=== PATIENT | male | born 1985 | race Caucasian/White ===

== ENCOUNTER → 2018-01-18 12:13 | Outpatient (CLI) | payer OTHER, SELFPAY | PROVIDERS: Visit Provider Physician Assistant Surgical | DX: J02.9 Acute pharyngitis, unspecified (principal) | CPT/HCPCS: 87081 ==

== ENCOUNTER → 2018-07-09 08:48 | Outpatient (CLI) | payer OTHER, SELFPAY ==
--- NOTE | 2018-07-09 08:55 | VDLE_ITS ---
[id number] VL^VDUL^Venous Duplex US- Unilateral [id number] TAG_START Cardiovascular Services Venous Doppler [facility] [address] Ordering Physician: Laura Rodriguez TAG_ENDED TAG_START Name: DIANNA CERVANTES Study Date: 07/09/2018 08:57 AM Patient Location: CVS : 1985 Gender: Male Age: 33 yrs Ethnicity: C TAG_ENDED Reason For Study: RLE Swelling RIGHT LEFT GSV is normal. CFV is compressible, spontaneous, phasic, CFV is compressible, spontaneous, phasic, competent, and demonstrates normal competent and demonstrates normal augmentation. augmentation. FV is compressible, spontaneous, phasic, competent and demonstrates normal augmentation. POP V is compressible, spontaneous, phasic, competent and demonstrates normal augmentation. T/P Trunk is compressible. PTV is compressible. RT PerV is compressible. Procedure Exam performed in department. A preliminary report was called and/or faxed to Michael. <> Interpretation Summary Deep veins of the right lower extremity are patent and compressible segmentally. There is no evidence of right lower extremity deep vein thrombosis. Valvular competence appears intact within the proximal deep venous system on the right . The right greater saphenous vein appears patent and compressible segmentally. TAG_START TAG_ENDED Ordering Physician: Laura Rodriguez Referring Physician: THEA Painting M.D. Performed By: Tracie Gallardo RVT and Student
== END ==
PROVIDERS: Family Provider Family Medicine; PCP Family Medicine; Visit Provider Physician Assistant
DX: M25.461 Effusion, right knee (principal); M79.604 Pain in right leg
CPT/HCPCS: 93971

== ENCOUNTER → 2018-11-10 09:12 | Outpatient (CLI) | payer OTHER, SELFPAY ==
[2018-11-10 09:27] LABS: Pathologist Comment May follow
[2018-11-10 10:18] LABS: RBC /Synovial Fluid 0.003 10^6/uL (0)
[2018-11-10 11:17] LABS: AUTO B FLUID DILUENT BKGD CT WBC <0.1 RBC <0.01 (W<.1,R<.01); Appearance /Synovial Fluid Cloudy (CLEAR); Color / Synovial Fluid Yellow (Pale Yellow); Source / Synovial Fluid RIGHT KNEE; Source- Body Fluid SYNOVIAL
[2018-11-10 12:34] LABS: Body Fluid QC Type(s) BF1Q,BF2Q; Lymph 8 %; Neutrophil 92 % (0-25)
[2018-11-11 08:59] LABS: Pathologist Review Reviewed
== END ==
PROVIDERS: Family Provider Family Medicine; PCP Family Medicine; Referring Provider Physician Assistant Surgical; Visit Provider Physician Assistant Surgical
DX: M22.41 Chondromalacia patellae, right knee (principal)
CPT/HCPCS: 87015; 87070; 87075; 87101; 87116; 87205; 87206; 89050; 89051; 89060

== ENCOUNTER 2020-08-13 21:30 | Emergency (ER) | payer OTHER, SELFPAY ==
[2020-08-13 21:31] VITALS: BP 145/102; PULSE 109; RESP 17; TEMP 36.9; O2SAT 99; BMI 32.2
--- NOTE | 2020-08-13 22:02 | EKG12_ITS ---
Test Reason : SOB, DIZZINESS Blood Pressure : / mmHG Vent. Rate : 085 BPM Atrial Rate : 085 BPM P-R Int : 172 ms QRS Dur : 082 ms QT Int : 368 ms P-R-T Axes : 041 034 020 degrees QTc Int : 437 ms Normal sinus rhythm Normal ECG Confirmed by LUI WEBB, BRINA ([id number]), editorial director VLADIMIR ESPINOZA ([id number]) on 08/15/2020 9:46:22 AM Referred By: CARMENCITA Confirmed By:BRINA POE MD
--- NOTE | 2020-08-13 22:10 | RAD_ITS ---
HISTORY: pt tested positive for covid 08/11, started to feel better but now has dizziness and sob. EXAMINATION/TECHNIQUE: XR Chest 1 View: COMPARISON: None FINDINGS: LINES/DEVICES: None. LUNGS: No consolidation, edema or effusion. No pneumothorax. MEDIASTINUM AND CARDIOVASCULAR STRUCTURES: Cardiac silhouette not enlarged. Central airways and mediastinal contour are unremarkable. BONES AND SOFT TISSUES: Unremarkable. RAD/Chest 1 View (Portable) IMPRESSION: No radiographic evidence of acute cardiopulmonary disease. at 2224 Reported and signed by: Marry Rollins DO Electronically Signed: Marry Rollins DO at 22:23 EST Tel , Service support ,
[2020-08-13 22:23] VITALS: O2SAT 96
[2020-08-13 22:27] LABS: Absolute Lymphocyte Count 1.48 X10^3/uL (0.83-4.51); Absolute Neutrophil Count 1.3 X10^3/uL (2.0-7.7); Basophil# 0.02 X10^3/uL; Basophil% 0.7 % (0-1); Eosinophil# 0.01 X10^3/uL; Eosinophils% 0.3 % (0-5); Hematocrit 46.5 % (40-54); Hemoglobin 16.3 g/dL (13.0-16.5); Lymphocyte # 1.48 X10^3/ul (4.0); Lymphocyte % 48.7 % (19-41); Mean Corp Hgb Conc 35.1 g/dL (32-36); Mean Corpuscular Hgb 30.1 pg (27.0-32.0); Mean Platelet Vol. 11.4 fl (6.2-12.0); Monocyte# 0.22 X10^3/uL; Monocyte% 7.2 % (0-10); NRBC Flagged by Analyzer 0 % (0-5); Neutrophil % 42.8 % (47-70); Platelet Count 175 K/mm3 (150-450); RBC Distribution Width CV 12.2 % (11.6-14.6); RBC Distribution Width SD 38.4 fl (35.1-43.9); Red Blood Count 5.41 M/mm3 (4.6-6.2)
[2020-08-13 22:33] LABS: Mucous, Urine 0 SEEN /hpf (<or=2+); Red Blood Cells-Urine 0 SEEN /hpf (0-5); Squamous Epithelial Cells - UA 0 SEEN /hpf (0-5)
[2020-08-13 22:55] LABS: Anion Gap 4 (5-15); BUN 12 mg/dL (7-18); BUN/Creat Ratio 10.3 RATIO (10-20); Calcium,Total 8.5 mg/dL (8.5-10.1); Chloride 107 mmol/L (98-107); Creatinine, Serum 1.17 mg/dL (0.70-1.30); EST Glomerular Filtration Rate 76 mL/min (>60); Est Glom Filt Rate - Afr Amer 92 mL/min (>60); Estimated Creatinine Clearance 95.64 ml/min; Glucose 95 mg/dL (74-106); Potassium 3.7 mmol/L (3.5-5.1); Sodium Level 141 mmol/L (136-145)
[2020-08-13 22:55] LABS: Color, Urine Yellow (Yellow); Glucose, Dipstick Normal (Normal); Ketone-Dipstick Negative (Negative); Leukocyte Esterase-Dipstick Negative /ul (Negative); Nitrite-Dipstick Negative (Negative); Occult Blood-Urine Negative /ul (Negative); Protein-Dipstick 15 mg/dl (Negative); Specific Gravity, Urine 1.015 (1.002-1.030); Urine Bilirubin Dipstick Negative (Negative); Urine Clarity Clear (Clear); Urine Urobilinogen 1 mg/dl (Normal)
[2020-08-13 23:18] LABS: D-Dimer Quantitative (DVT/PE) <= 0.27 FEU/ug/m (0.27-0.49)
[2020-08-13 23:23] LABS: Bacteria RARE /hpf (None Seen); White Blood Cells 0-5 SEEN /hpf (0-5)
--- NOTE | 2020-08-13 23:36 | ED.VISSUMM ---
- ER Visit Summary Date of Service: 08/13/20 Chief Complaint: Shortness of breath History of Present Illness: The patient is a [address] Wilmer Painting. He reports that he has had a cough since July 29. However, he was not tested for Covid until 2 days ago and this came back positive. Ports he has shortness of breath that began today. He had a fever to 100.5 degrees. Also complains of a sharp left-sided chest pain that is increased with deep breaths. States he has a headache is 3-10 severity and generalized weakness. Physical Examination: Vitals: Stable. Afebrile. General: Well-nourished and well-developed. Head: Normocephalic atraumatic. Neck: Supple, no lymphadenopathy. No JVD. Nontender. Cardiovascular: Regular rate and rhythm. No murmurs. Respiratory: No respiratory distress. Clear to auscultation bilaterally. Abdominal: Soft, nontender, nondistended, normal bowel sounds. No guarding, rebound, or peritoneal signs. Back: Nontender. Extremities: Nontender, no edema. Skin: Normal color, no rash. Neurologic: Alert and oriented ?3. Cranial nerves II through XII are intact. Normal strength and sensation. Psych: Normal affect. Test Results: EKG is sinus at 85 with no acute changes. D-dimer is negative. UA is negative. Chem-7 is normal. CBC shows a white count of 3.0 with 43 segmented neutrophils and 49 lymphocytes. Chest x-ray shows no acute disease. Emergency Department Course and Treatment: Amatory pulse ox is 96%. Patient is resting comfortably. Treatment Plan: Patient will be discharged with instructions to follow-up Dr. Wilmer Painting III in 10 to 14 days if not improving. He is instructed to continue to quarantine. Return to the emergency department for any worsening symptoms. Disposition: To home in improved and stable condition. Impression: 1. COVID-19 infection. 2. Dyspnea. This note was generated with [employer]'s dictation software. It may contain incorrect words, spelling, and punctuation that were not noted in review of the chart prior to signing ED Disposition - Plan for ED Patient: Instructions: ED URI, Viral, No Abx (Adult) Referrals: Wilmer Painting III, MD [Primary Care Provider] - 10-14 Days if not better
[2020-08-13 23:52] VITALS: BP 137/69; PULSE 79; RESP 15; O2SAT 98
== END 2020-08-14 00:40 | disposition home or self-care (01) ==
PROVIDERS: Emergency Provider Emergency Medicine; PCP Family Medicine
DX: U07.1 COVID-19 (principal); R06.00 Dyspnea, unspecified; I10 Essential (primary) hypertension
CPT/HCPCS: 71045; 80048; 81001; 85025; 85379; 93005; 96360; 99285; A4216

== ENCOUNTER 2021-10-03 09:00 | Outpatient (CLI) | payer OTHER, SELFPAY ==
[2021-10-03 12:45] LABS: Anion Gap 7 (5-15); BUN 10 mg/dL (7-18); BUN/Creat Ratio 10.8 RATIO (10-20); Chloride 109 mmol/L (98-107); Creatinine, Serum 0.92 mg/dL (0.70-1.30); EST Glomerular Filtration Rate 99 mL/min (>60); Est Glom Filt Rate - Afr Amer 120 mL/min (>60); Glucose 94 mg/dL (74-106); Potassium 3.8 mmol/L (3.5-5.1); Sodium Level 140 mmol/L (136-145)
== END 2021-10-03 23:59 | disposition short-term general hospital (02) ==
LOC: BIMLAB 09:02
PROVIDERS: PCP Nurse Practitioner Family; Referring Provider Nurse Practitioner Family; Visit Provider Nurse Practitioner Family
DX: I10 Essential (primary) hypertension (principal)
CPT/HCPCS: 36415; 80048

== ENCOUNTER → 2022-01-22 | Outpatient (CLI) | payer OTHER, SELFPAY ==
[2022-01-22 12:30] LABS: Absolute Lymphocyte Count 1.65 X10^3/uL (0.83-4.51); Absolute Neutrophil Count 2.6 X10^3/uL (2.0-7.7); Basophil# 0.05 X10^3/uL; Eosinophils% 2.1 % (0-5); Hematocrit 46.7 % (40-54); Hemoglobin 15.6 g/dL (13.0-16.5); Lymphocyte # 1.65 X10^3/ul (0.83-4.51); Lymphocyte % 34.4 % (19-41); Mean Corp Hgb Conc 33.4 g/dL (32-36); Mean Corpuscular Hgb 29.3 pg (27.0-32.0); Mean Corpuscular Volume 87.6 fL (80-94); Mean Platelet Vol. 11.6 fl (6.2-12.0); Monocyte% 8.3 % (0-10); NRBC Flagged by Analyzer 0 % (0-5); Neutrophil # 2.59 X10^3/uL (2.7-7.7); Platelet Count 211 K/mm3 (150-450); RBC Distribution Width CV 12.6 % (11.6-14.6); RBC Distribution Width SD 40.3 fl (35.1-43.9); Red Blood Count 5.33 M/mm3 (4.6-6.2); White Blood Count 4.8 K/mm3 (4.4-11.0)
[2022-01-22 13:07] LABS: ALB/GLOB Ratio 1.2 RATIO (0.9-2.4); AST(SGOT) 25 U/L (15-37); Alanine Aminotransfer ALT/SGPT 54 U/L (16-61); Albumin, Serum 4.1 g/dL (3.2-5.0); Alkaline Phosphatase 73 U/L (45-117); Anion Gap 5 (5-15); BUN 12 mg/dL (7-18); BUN/Creat Ratio 12.4 RATIO (10-20); Calcium,Total 8.9 mg/dL (8.5-10.1); Chloride 107 mmol/L (98-107); Cholesterol 200 mg/dL (200); Creatinine, Serum 0.96 mg/dL (0.70-1.30); EST Glomerular Filtration Rate 94 mL/min (>60); Est Glom Filt Rate - Afr Amer 114 mL/min (>60); Globulin 3.5 g/dL (2.2-4.2); Glucose 95 mg/dL (74-106); High Density Lipoprotein 43 mg/dL; Potassium 3.9 mmol/L (3.5-5.1); Protein, Total 7.6 g/dL (6.4-8.2); Sodium Level 139 mmol/L (136-145); Thyroid Stim Hormone (TSH) 2.23 uIU/mL (0.358-3.74); Triglycerides 54 mg/dL; Very Low Density Lipoprotein 11 mg/dL (5-40)
== END | disposition home or self-care (01) ==
PROVIDERS: PCP Nurse Practitioner Family; Referring Provider Nurse Practitioner Family; Visit Provider Nurse Practitioner Family
DX: Z00.00 Encounter for general adult medical examination without abnormal findings (principal); R73.09 Other abnormal glucose
CPT/HCPCS: 36415; 80053; 80061; 83036; 84443; 85025

== ENCOUNTER → 2022-08-26 | Outpatient (CLI) | payer OTHER, SELFPAY | END | disposition home or self-care (01) | PROVIDERS: PCP Nurse Practitioner Family; Referring Provider Nurse Practitioner Family; Visit Provider Nurse Practitioner Family | DX: G47.10 Hypersomnia, unspecified (principal) | CPT/HCPCS: 95806 ==

== ENCOUNTER → 2024-04-14 | Outpatient (CLI) | payer BC, SELFPAY ==
[2024-04-14 17:19] LABS: Color, Urine Yellow (Yellow); Glucose, Dipstick Normal (Normal); Ketone-Dipstick Negative (Negative); Leukocyte Esterase-Dipstick 25 /ul (Negative); Nitrite-Dipstick Negative (Negative); Occult Blood-Urine Negative /ul (Negative); Protein-Dipstick 15 mg/dl (Negative); Specific Gravity, Urine 1.025 (1.002-1.030); Urine Bilirubin Dipstick Negative (Negative); Urine Clarity Clear (Clear); Urine Urobilinogen Normal (Normal)
[2024-04-14 17:22] LABS: Absolute Neutrophil Count 3.6 X10^3/uL (2.0-7.7); Basophil# 0.04 X10^3/uL; Basophil% 0.6 % (0-1); Eosinophils% 1.6 % (0-5); Hematocrit 44.3 % (40-54); Hemoglobin 14.9 g/dL (13.0-16.5); Lymphocyte % 33.3 % (19-41); Mean Corp Hgb Conc 33.6 g/dL (32-36); Mean Corpuscular Hgb 28.9 pg (27.0-32.0); Mean Corpuscular Volume 85.9 fL (80-94); Mean Platelet Vol. 11.6 fl (6.2-12.0); Monocyte# 0.43 X10^3/uL; Monocyte% 6.8 % (0-10); NRBC Flagged by Analyzer 0 % (0-5); Neutrophil # 3.61 X10^3/uL (2.7-7.7); Neutrophil % 57.4 % (47-70); Platelet Count 257 K/mm3 (150-450); RBC Distribution Width CV 12.5 % (11.6-14.6); RBC Distribution Width SD 38.9 fl (35.1-43.9); Red Blood Count 5.16 M/mm3 (4.6-6.2); White Blood Count 6.3 K/mm3 (4.4-11.0)
[2024-04-14 17:36] LABS: Vitamin B12 390 pg/mL (211-911)
[2024-04-14 17:52] LABS: ALB/GLOB Ratio 1.2 RATIO (0.9-2.4); AST(SGOT) 27 U/L (15-37); Alanine Aminotransfer ALT/SGPT 52 U/L (16-61); Albumin, Serum 4.2 g/dL (3.2-5.0); Alkaline Phosphatase 69 U/L (45-117); Anion Gap 6 (5-15); BUN 16 mg/dL (7-18); BUN/Creat Ratio 15.8 RATIO (10-20); Calcium,Total 9.1 mg/dL (8.5-10.1); Chloride 106 mmol/L (98-107); Cholesterol 203 mg/dL (200); Creatinine, Serum 1.01 mg/dL (0.70-1.30); EST Glomerular Filtration Rate 88 mL/min (>60); Est Glom Filt Rate - Afr Amer 107 mL/min (>60); Globulin 3.6 g/dL (2.2-4.2); Glucose 85 mg/dL (74-106); High Density Lipoprotein 46 mg/dL; Potassium 4.1 mmol/L (3.5-5.1); Protein, Total 7.8 g/dL (6.4-8.2); Sodium Level 138 mmol/L (136-145); T4 Free Direct 1.09 ng/dL (0.76-1.46); Thyroid Stim Hormone (TSH) 1.62 uIU/mL (0.358-3.74); Triglycerides 62 mg/dL; Very Low Density Lipoprotein 12 mg/dL (5-40)
[2024-04-19 11:09] LABS: Testosterone, % Free 3.49 % (1.50-4.20); Testosterone, Free 10.68 ng/dL (5.00-21.00); Testosterone, Total 306 ng/dL (264-916)
== END | disposition home or self-care (01) ==
LOC: VSLAB 13:48
PROVIDERS: PCP Nurse Practitioner Family; Visit Provider Nurse Practitioner Family
DX: Z00.00 Encounter for general adult medical examination without abnormal findings (principal); E55.9 Vitamin D deficiency, unspecified; N52.9 Male erectile dysfunction, unspecified
CPT/HCPCS: 36415; 80053; 80061; 81002; 82306; 82607; 84402; 84403; 84439; 84443; 85025

== ENCOUNTER 2024-05-20 06:58 | Day surgery (SDC) | payer BC, SELFPAY ==
[2024-05-20] VITALS (7 sets, daily range): BP systolic 91–130; BP diastolic 68–80; PULSE 67–91; RESP 16–82; TEMP 36.2–36.6; O2SAT 94–98; BMI 32.3
--- NOTE | 2024-05-20 07:21 | PCM.PRE.AN2 ---
ASA Classification* ASA Classification ASA Classification: 2 Assessment & Plan Anesthesia* Anesthesia Assessment Anesthesia Assessment: Discussed sedation and/or anesthesia options, risks, benefits, and alternatives with patient/parents/legal guardian/POA. Questions invited. The patient/parents/legal guardian/POA seems to understand and agrees to proceed with anesthesia plan. Reviewed the physical assessment, medical history, allergy history and patient home medications list prior to surgery/procedure/anesthetic and documented any changes. Performed airway and anesthesia risk assessments. Anesthesia Type Anesthesia Type: MAC (see written pre anesthesia record for full assessment) Anesthesia Focused Assessment* Airway Assessment Mouth opens: >3 cm Mallampati Score: II Focused Labs Anesthesia Preop lab: CBC WBC 6.3 K/mm3 (4.4-11.0) 04/14/24 13:48 RBC 5.16 M/mm3 (4.6-6.2) 04/14/24 13:48 Hgb 14.9 g/dL (13.0-16.5) 04/14/24 13:48 Hct 44.3 % (40-54) 04/14/24 13:48 Plt Count 257 K/mm3 (150-450) 04/14/24 13:48 CHEMISTRY Potassium 4.1 mmol/L (3.5-5.1) 04/14/24 13:48 Sodium 138 mmol/L (136-145) 04/14/24 13:48 BUN 16 mg/dL (7-18) 04/14/24 13:48 Creatinine 1.01 mg/dL (0.70-1.30) 04/14/24 13:48 Glucose 85 mg/dL (74-106) 04/14/24 13:48 TSH 1.62 uIU/mL (0.358-3.74) 04/14/24 13:48 COAG Pre-Assessment Diagnosis/Proposed Procedure Planned Operative Procedure(s): COLONOSCOPY Anesthesia History 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 When Was Last Pacemaker Check QUESTION #4 FULL TEXT: You/Your Family Experience fever (hyperthermia) with Anesthesia Last Oral Intake Last Oral intake: Last Oral Intake NPO since Meds taken in AM with sips of water? Meds patient instructed to take am of surgery PONV PONV - fabrication supervisor: PONV - fabrication supervisor Female No 05/17/24 15:46 HX of Motion Sickness No 05/17/24 15:46 HX of N/V After Surgery No 05/17/24 15:46 Non-Smoker Yes 05/17/24 15:46 Duration of Surgery greater No 05/17/24 15:46 than 60 minutes Number of Risk Factors 1 05/17/24 15:46 PONV Score Low Risk 05/17/24 15:46 Height & Weight Height & Weight: Anesthesia: Height & Weight Height 5 ft 11 in 04/28/24 09:11 Respiratory Assessment Respiratory Assessment - fabrication supervisor: Respiratory Tract Infection Hx - fabrication supervisor Hx Respiratory Tract Infection No 05/17/24 15:46 STOP Sleep Apnea STOP Sleep Apnea - fabrication supervisor: STOP Sleep Apnea - fabrication supervisor Hx Hypertension Yes 05/17/24 15:46 Hx Sleep Apnea No 05/17/24 15:46 CPAP BIPAP Do you snore loudly (louder No 05/17/24 15:46 than talking or can be heard Do you often feel tired/ No 05/17/24 15:46 fatigued/ sleepy during daytime? Has anyone observed you stop No 05/17/24 15:46 breathing during sleep? STOP Results Negative 05/17/24 15:46 QUESTION #5 FULL TEXT : Do you snore loudly (louder than talking or can be heard through closed doors)? 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 Specify any problems Hx of Preganancy in last 3 N/A 05/17/24 15:46 Months Nurse Filling Out Transfusion [facility] 05/17/24 15:46 & Questions: Date: 05/17/24 05/17/24 15:46 Time: 15:53 05/17/24 15:46 Patient unable to answer at this time (ie. confused, unrespo /Reproduction History /Reproductive History - fabrication supervisor: /Reproductive Hx- fabrication supervisor Hx Now No 05/17/24 15:46 Gestational Age (in weeks): EDC: Hx Hx Para Hx Section SAB No 05/17/24 15:46 Active Medications Active Medications: Current Medications Generic Name Dose Route Start Last Admin Trade Name Freq PRN Reason Stop Dose Admin Lactated Ringer's 1,000 mls @ 15 mls/hr 05/20/24 07:15 IV .Q48H ALVINA PFSH Medical History Wears glasses Non-smoker Asthma Anal fissure Hypersomnia Encounter for preventative adult health care examination Puncture wound of left foot HTN (hypertension) GERD (gastroesophageal reflux disease) IBS (irritable bowel syndrome) Hyperlipemia Asthma Seasonal allergies SOB (shortness of breath) HTN (hypertension) Home Medications ?Medication ?Instructions ?Recorded ?Last Taken ?Type albuterol sulfate 90 mcg/actuation 2 puff inhalation Q6H PRN 02/05/23 Unknown Rx aerosol inhaler shortness of breath or wheezing #8.5 GMS lisinopril 20 1 tab PO DAILY #90 tabs 02/05/23 Unknown Rx mg-hydrochlorothiazide 12.5 mg tablet Allergy/AdvReac Type Severity Reaction Status Date / Time animal dander Allergy Unknown Verified 05/20/24 07:13 grass pollen Allergy Unknown Verified 05/20/24 07:13 house dust Allergy Unknown Verified 05/20/24 07:13 nickel Allergy Unknown Verified 05/20/24 07:13 Family History Grandfather Hypertension Surgical History History of tonsillectomy Social History Smoking Status: Never smoker alcohol intake: never substance use type: does not use what type of physical activity do you participate in: walking frequency: daily duration: 45-60 minutes/day Review of Systems (Anesthesia) ROS Narrative System reviewed and no additional complaints, except as documented.
--- NOTE | 2024-05-20 08:03 | HP.PCM_ITS ---
History and Physical Date of Admission: 05/20/24 Intake Vital Signs 02/06/2316:45 04/28/2409:11 Height 5 ft 11 in 5 ft 11 in Weight: 236 lb BMI 32.9 BP 145/83 H Blood Pressure Location Rt brachial Position Sitting Respiration 17 Pulse 75 Pulse Source Monitor Temp 96.8 F L Temp Source Temporal Pulse Oximetry (%) 95 Oxygen Delivery Method room air Intake Visit Reasons: RECTAL BLEEDING Chief Complaint: rectal bleeding Is patient in pain?: No Allergies animal dander Allergy (Verified 04/28/24 09:12) Unknowngrass pollen Allergy (Verified 04/28/24 09:12) Unknownhouse dust Allergy (Verified 04/28/24 09:12) Unknownnickel Allergy (Verified 04/28/24 09:12) Unknown Medications ?Medication ?Instructions ?Recorded ?Confirmed ?Type albuterol sulfate 90 mcg/actuation 2 puff inhalation Q6H PRN 02/05/23 04/28/24 Rx aerosol inhaler shortness of breath or wheezing #8.5 GMS lisinopril 20 1 tab PO DAILY #90 tabs 02/05/23 04/28/24 Rx mg-hydrochlorothiazide 12.5 mg tablet PFSH Medical History (Updated 04/28/24 @ 09:10 by Trish Elias) Anal fissure Hypersomnia Encounter for preventative adult health care examination Puncture wound of left foot HTN (hypertension) GERD (gastroesophageal reflux disease) IBS (irritable bowel syndrome) Hyperlipemia Asthma Seasonal allergies SOB (shortness of breath) HTN (hypertension) Family History (Updated 04/28/24 @ 09:11 by Trish Elias) Grandfather Hypertension Social History Smoking Status: Never smoker alcohol intake: never substance use type: does not use what type of physical activity do you participate in: walking frequency: daily duration: 45-60 minutes/day HPI HPI HPI: Patient is a 38-year-old male who is here with blood in his stool. He says has been going on for several months. He says he does have hard bowel movements. He is not having pain with defecation. He says the blood is bright red. He has never had a colonoscopy. ROS General General: No weight change, appetite, fatigue, colon cancer, breast cancer or weakness HEENT HEENT: No difficulty swallowing, eye injury, eye surgery, swollen glands or hoarseness Endo Endocrine: No thyroid disease, diabetes mellitus, thyroid cancer, Hair loss, heat intolerance or cold intolerance Skin Skin: No rash or changing moles Musc Musculoskeletal: No back problems, arthritis, rheumatoid arthritis, gout or joint pain Cardio Cardiovascular: Yes high blood pressure; No murmur, pacemaker, heart disease, atrial fibrillation, heart attack, heart stent, palpitations, shortness of breat with exertion or chest pain Psych Psychiatric: No depression, anxiety or hearing voices Resp Respiratory: No shortness of breath, No sleep apnea, No cough, No COPD, No asthma, No emphysema and No wheezing Gastro Gastrointestinal: No abdominal pain, No nausea or vomiting, No diarrhea, No constipation, Yes blood in stool, No acid reflux, No hemorrhoids, No ulcers, No gallbladder problem and No black,tarry stools Silvano Hematologic: No blood thinners, No blood disorders, No bleeding, No anemia and No blood clots Neuro Neurologic: No system reviewed and no additional complaints, except as documented, No as per HPI, No abnormal gait, No abnormal hearing, No abnormal movements, No abnormal speech, No behavioral changes, No burning sensations, No confusion, No convulsions, No disequilibrium, No dizziness, No localized weakness, No frequent falls, No headache(s), No lack of coordination, No loss of vision, No memory loss, No numbness, No other visual disturbances, No radicular pain, No restless legs, No sensory deficit, No syncope, No tingling, No tremor(s), No weakness and No other Exam Const General: cooperative Orientation: alert and oriented x3 HENMT Head: normal to inspection Neck Neck: normal visual inspection and full ROM Chest Chest palpation & inspection: normal inspection of the chest Resp Effort & Inspection: normal respiratory effort Auscultation: clear to auscultation bilaterally Cardio Rate: regular rate Rhythm: regular rhythm GI Inspection: non-distended Palpation: soft and nontender Skin General: no rashes or lesions noted Neuro General: patient alert and patient oriented x3 Extrem General: full ROM Psych Appearance: grossly normal Mental Status: mental status grossly normal Assessment and Plan Assessment and Plan (1) Blood in stool: Status: Acute Plan: Plan for colonoscopy to evaluate for bleeding. I explained endoscopy in detail to the patient. I explained the risks including but not limited to stroke or heart attack with anesthesia, perforation of the GI tract, bleeding, infection. I explained that any of these could necessitate further emergency surgery. The patient understands and all questions were answered sufficiently. The patient wishes to proceed with procedure. Isreal Cha MD Pager: [facility] [address] [place] [address], [address] [place] [address] Office: I have examined the patient and the H&P has been reviewed. There are no clinical changes since date of exam.
--- NOTE | 2024-05-20 08:32 | PCM.POST.ANE ---
Anesthesia: Postop Eval I Current Vital Signs Temperature: 97.8 F Pulse Rate: 75 Blood Pressure: 91/69 Respiratory Rate: 16 Pulse Ox: 95 Oxygen Delivery Method: Room Air Assessment Airway patent: Yes Spontaneous unlabored respirations: Yes Mental status: Asleep nausea: No Vomiting: No Anesthesia Complication: No Fluid Hydration Crystalloid volume administer (ml): 500 Total IV fluid infused: 500 Progress Note Anesthesia document: Postop Eval 1 completed: Yes
[2024-05-20] MEDS: Lactated Ringers 1,000 ML 15 ML IV (08:35)
--- NOTE | 2024-05-20 08:37 | OP.COLON_ITS ---
Patient Name: Joel Kc Procedure Date: 05/20/2024 8:09 AM Date of : 1985 Age: 39 Procedure: Colonoscopy Indications: Rectal bleeding Providers: Isreal Cha MD Referring MD: Isreal Cha MD Medicines: Propofol per Anesthesia Patient Profile: This is a 39 year old male. Refer to note in patient chart for documentation of history and physical. Last Colonoscopy: none. The patient's first colonoscopy is today. Complications: No immediate complications. Procedure: Pre-Anesthesia Assessment: - Prior to the procedure, a History and Physical was performed, and patient medications and allergies were reviewed. The patient's tolerance of previous anesthesia was also reviewed. The risks and benefits of the procedure and the sedation options and risks were discussed with the patient. All questions were answered, and informed consent was obtained. Prior Anticoagulants: The patient has taken no anticoagulant or antiplatelet agents. After reviewing the risks and benefits, the patient was deemed in satisfactory condition to undergo the procedure. After I obtained informed consent, the scope was passed under direct vision. Throughout the procedure, the patient's blood pressure, pulse, and oxygen saturations were monitored continuously. The Colonoscope was introduced through the anus and advanced to the cecum, identified by appendiceal orifice and ileocecal valve. The colonoscopy was performed without difficulty. The patient tolerated the procedure well. The quality of the bowel preparation was good. The ileocecal valve, appendiceal orifice, and rectum were photographed. Scope In: 8:17:01 AM Scope Withdrawal Time 0 hours 4 minutes 37 seconds Scope Out: 8:25:38 AM Total Procedure Duration Time 0 hours 8 minutes 37 seconds Findings: The entire examined colon appeared normal on direct and retroflexion views. Impression: - The entire examined colon is normal on direct and retroflexion views. - No specimens collected. Recommendation: - Discharge patient to home. - Resume previous diet. - Continue present medications. - Repeat colonoscopy in 10 years for screening purposes. Procedure Code(s): --- Professional --- 22320, Colonoscopy, flexible; diagnostic, including collection of specimen(s) by brushing or washing, when performed (separate procedure) Diagnosis Code(s): --- Professional --- K62.5, Hemorrhage of anus and rectum CPT copyright 2021 [employer]. All rights reserved. The codes documented in this report are preliminary and upon plaster patternmaker review may be revised to meet current compliance requirements. Isreal Cha MD 05/20/2024 8:37:39 AM This report has been signed electronically. Number of Addenda: 0 Note Initiated On: 05/20/2024 8:09 AM
--- NOTE | 2024-05-20 08:37 | OP.CCLET_ITS ---
05/20/2024 [facility], [facility] Re : Colonoscopy procedure for Joel Kc Dear Srikanth This procedure was performed on Monday, May 20, 2024. My impressions and recommendations are as follows: Impressions : - The entire examined colon is normal on direct and retroflexion views. - No specimens collected. Recommendations : - Discharge patient to home. - Resume previous diet. - Continue present medications. - Repeat colonoscopy in 10 years for screening purposes. My findings are described in the full procedure note, which is enclosed. If I can be of further assistance, please feel free to contact me at Doctor phone number(s): , Work: . Sincerely, Isreal Cha MD 05/20/2024 8:37:39 AM This report has been signed electronically.
--- NOTE | 2024-05-20 14:48 | PCM.POSTANE2 ---
Anesthesia Postop Eval I Sum Postop Eval Completion status Anesthesia document: Postop Eval 1 completed: Yes Anesthesia Postop Eval I Summary Anesthesia Postop Eval I Summary: Anesthesia Postop Eval I: Assessment Summary Airway patent Yes 05/20/24 08:33 [email or web address] Spontaneous unlabored Yes 05/20/24 08:33 [email or web address] respirations Mental status Asleep 05/20/24 08:33 [email or web address] nausea No 05/20/24 08:33 [email or web address] Vomiting No 05/20/24 08:33 [email or web address] Anesthesia Postop Eval I: Fluid Summary Crystalloid volume administer 500 05/20/24 08:33 [email or web address] (ml) Colloids volume administered ( ml) Blood Product volume administered (ml) Total IV fluid infused 500 05/20/24 08:33 [email or web address] Anesthesia Postop Eval I: Summary Notes Anesthesia Complication No 05/20/24 08:33 [email or web address] Anesthesia Complication Comment: Post-operative progress note Anesthesia: Postop Eval II Evaluation Mental status: Awake and Calm Pain Level: 0 nausea: No Vomiting: No Complications Anesthesia Complication: No
== END 2024-05-20 09:16 | disposition home or self-care (01) ==
LOC: EN 06:59 → AC 07:00
PROVIDERS: PCP Nurse Practitioner Family; Referring Provider Nurse Practitioner Family; Visit Provider Surgery
PROC: 0DJD8ZZ Inspection of Lower Intestinal Tract, Via Natural or Artificial Opening Endoscopic (ICD-10-PCS; CPT 45378; principal; 2024-05-20 07:55)
DX: K62.5 Hemorrhage of anus and rectum (principal); I10 Essential (primary) hypertension; Z79.51 Long term (current) use of inhaled steroids; Z79.899 Other long term (current) drug therapy; Z86.16 Personal history of COVID-19
CPT/HCPCS: 45378; J7120; J2405

== ENCOUNTER 2024-11-18 09:44 | Emergency (ER) | payer BC, SELFPAY ==
[2024-11-18 09:45] VITALS: BP 176/112; PULSE 64; RESP 15; TEMP 36.4; O2SAT 97; BMI 32.8
--- NOTE | 2024-11-18 11:20 | EDS_ITS ---
HPI History of Present Illness Chief Complaint: Dizziness Informant: patient Narrative Narrative: 39-year-old male presenting to the emergency department with headache hypertension and dizziness. Patient states that he has had vertigo 2 previous times in his life. This morning around 0600 he went to get out of bed and felt vertiginous. He felt that the room was spinning. He decided to lay back down and try to go back to sleep. He woke up again around 0730 hrs. and had continued symptoms that began to notice a frontal headache. He noticed that his blood pressure was higher than normal. He noted associated nausea. He states his symptoms are better now but still present. He states he is now able to look to the right and move around some without as much dizziness. He states before he could not move in any directions without being dizzy. [facility] Medical History Wears glasses Non-smoker Asthma Anal fissure Hypersomnia Encounter for preventative adult health care examination Puncture wound of left foot HTN (hypertension) GERD (gastroesophageal reflux disease) IBS (irritable bowel syndrome) Hyperlipemia Asthma Seasonal allergies SOB (shortness of breath) HTN (hypertension) Home Medications ?Medication ?Instructions ?Recorded ?Last Taken ?Type diazepam 5 mg tablet 5 mg PO Q8 PRN vertigo #10 t abs 11/18/24 Unknown Rx ondansetron 4 mg disintegrating 4 mg PO Q6H PRN PRN Na usea #15 tabs 11/18/24 Unknown Rx tablet Allergy/AdvReac Type Severity Reaction Status Date / Time animal dander Allergy Unknown Verified 11/18/24 09:49 grass pollen Allergy Unknown Verified 11/18/24 09:49 house dust Allergy Unknown Verified 11/18/24 09:49 nickel Allergy Unknown Verified 11/18/24 09:49 Family History Grandfather Hypertension Surgical History History of tonsillectomy Social History household members: spouse and children housing: house current occupational status: employed Smoking Status: Never smoker alcohol intake: never substance use type: does not use what type of physical activity do you participate in: walking frequency: daily duration: 45-60 minutes/day ROS ROS ED Constitutional Constitutional ED: Denies chills or weight loss Eyes Eyes: Denies change in vision or diplopia ENT ENT ED: Denies ear pain, rhinorrhea or sore throat Cardiovascular Cardiovascular: Denies orthopnea, palpitations or racing heartbeat Respiratory/Chest Respiratory/Chest: Denies cough, dyspnea or orthopnea Gastrointestinal Gastrointestinal: Reports nausea; Denies abdominal pain, diarrhea or vomiting Genitourinary Genitourinary ED: Denies dysuria, hematuria or urinary frequency Musculoskeletal Musculoskeletal: Denies arthralgias or myalgias Integumentary Denies abscess or rash Neurologic Neurologic: Reports headache(s) and other Details: Dizziness ; Denies weakness Psychiatric Psychiatric: Denies anxiety, depression, suicidal ideation or suicidal thoughts Endocrine Endocrinology: Denies polydipsia, polyphagia or polyuria Allergic/Immunologic Allergic/Immunologic ED: Denies mouth swelling, tongue swelling or urticaria EXAM Physical Exam Const Vital Signs: 11/18/24 09:45 11/18/24 12:00 11/18/24 13:04 Temperature 97.6 F L 97.8 F Temperature Source Temporal Pulse Rate 64 58 L 60 Respiratory Rate 15 15 16 Blood Pressure 176/112 H 136/91 H 145/90 H Blood Pressure Mean 133 106 108 Pulse Ox 97 95 99 Oxygen Delivery Method Room Air Positive well nourished and well developed General Appearance ED: well developed and NAD HEENT Reports normocephalic, head/scalp atraumatic and moist mucous membranes Eyes PERRL and EOMs intact bilaterally Eyes Narrative: No nystagmus Neck no lymphadenopathy, supple and no JVD Resp normal respiratory effort and clear to auscultation bilaterally Cardio regular rate, regular rhythm and no murmurs GI normal to inspection, nondistended, normoactive bowel sounds and non-tender Palpation: soft Back/Spine no CVA tenderness and normal ROM Extremity normal to inspection General Extremety ED: Negative for edema General Extremity: Negative for edema Neuro oriented x3, CN's II-XII intact bilaterally and no sensory deficits noted Neuro Narrative: NIH is 0 Sensorium / Orientation: alert Motor Exam: strength 5/5 throughout Psych mental status grossly normal Mood & Affect: Negative for depressed or tearful Skin no rashes or lesions noted and no wounds MDM MDM MDM Narrative Medical decision making narrative: Differential diagnosis includes vertigo dehydration electrolyte abnormality central vertigo stroke hypertensive urgency hemorrhage Patient is neurologically intact has NIH is 0. Basic blood work is normal. Received IV fluids diazepam Toradol and Zofran. Blood pressure is improved. He remains neurologically intact. I think the patient can be discharged home. He is got a history of vertigo and I suspect that he had benign positional vertigo. Due to the nausea and his symptomology is suspected became hypertensive which may have resulted in headache. I believe he can be discharged home with supportive care return if worsening or concerns History & Record Review Discussion w/independent historian: Patient Lab Data Attestation: I reviewed the patient's lab results. Labs: Laboratory Results - last 24 hr 11/18/24 11:34 WBC 6.0 RBC 5.29 Hgb 15.7 Hct 46.5 MCV 87.9 MCH 29.7 MCHC 33.8 RDW Std Deviation 40.9 RDW Coeff of Janell 12.8 Plt Count 192 MPV 11.4 Immature Gran % (Auto) 0.700 Neut % (Auto) 70.6 H Lymph % (Auto) 21.5 Charlton % (Auto) 6.2 Eos % (Auto) 0.3 Baso % (Auto) 0.7 Absolute Neuts (auto) 4.2 Absolute Lymphs (auto) 1.29 Nucleated RBC % 0 Sodium 134 Potassium 5.1 Chloride 104 Carbon Dioxide 20.4 L Anion Gap 9 BUN 11 Creatinine 0.94 Estim Creat Clear Calc 133.65 Est GFR (MDRD) Non-Af 107 BUN/Creatinine Ratio 12.0 Glucose 92 Calcium 9.3 Discharge Plan Triage Chief Complaint: Dizziness ED Provider: Dillon Parisi Dx/Rx/DC Orders Clinical Impression: HTN (hypertension), Vertigo Instructions: ED Vertigo, Unspecified Prescriptions: New diazepam 5 mg tablet 5 mg PO Q8 PRN (Reason: vertigo) Qty: 10 0RF ondansetron 4 mg tablet,disintegrating 4 mg PO Q6H PRN PRN (Reason: Nausea) Qty: 15 0RF Primary Care Provider: Axel Duke Referrals: Axel Duke, [employer] [Primary Care Provider] - As Needed Print Language: Azeri Disposition Disposition: Home, Self Care Discharge Date/Time: 11/18/24 13:05
[2024-11-18] MEDS: diazePAM 5 MG Tablet PO (11:30)
[2024-11-18] MEDS: Ketorolac 30 MG/ML Syringe IV (11:30)
[2024-11-18] MEDS: Ondansetron 4 MG/2 ML Vial IV (11:30)
[2024-11-18] MEDS: 0.9% Normal Saline (1000mL) 1,000 ML 1000 ML IV (11:30)
[2024-11-18 11:43] LABS: Absolute Lymphocyte Count 1.29 X10^3/uL (0.83-4.51); Absolute Neutrophil Count 4.2 X10^3/uL (2.0-7.7); Basophil# 0.04 X10^3/uL; Basophil% 0.7 % (0-1); Eosinophil# 0.02 X10^3/uL; Eosinophils% 0.3 % (0-5); Hematocrit 46.5 % (40-54); Hemoglobin 15.7 g/dL (13.0-16.5); Lymphocyte # 1.29 X10^3/ul (0.83-4.51); Lymphocyte % 21.5 % (19-41); Mean Corp Hgb Conc 33.8 g/dL (32-36); Mean Corpuscular Hgb 29.7 pg (27.0-32.0); Mean Corpuscular Volume 87.9 fL (80-94); Mean Platelet Vol. 11.4 fl (6.2-12.0); Monocyte# 0.37 X10^3/uL; Monocyte% 6.2 % (0-10); NRBC Flagged by Analyzer 0 % (0-5); Neutrophil # 4.24 X10^3/uL (2.7-7.7); Neutrophil % 70.6 % (47-70); Platelet Count 192 K/mm3 (150-450); RBC Distribution Width CV 12.8 % (11.6-14.6); RBC Distribution Width SD 40.9 fl (35.1-43.9); Red Blood Count 5.29 M/mm3 (4.6-6.2)
[2024-11-18 12:00] VITALS: BP 136/91; PULSE 58; RESP 15; O2SAT 95
[2024-11-18 12:06] LABS: Anion Gap 9 (5-15); BUN 11 mg/dL (4-19); Calcium,Total 9.3 mg/dL (7.6-11.0); Carbon Dioxide 20.4 mmol/L (21.0-32.0); Chloride 104 mmol/L (98-108); Creatinine, Serum 0.94 mg/dL (0.70-1.20); EST Glomerular Filtration Rate 107 (>60); Estimated Creatinine Clearance 133.65 ml/min (50-250); Glucose 92 mg/dL (70-99); Potassium 5.1 mmol/L (3.3-5.1); Sodium Level 134 mmol/L (133-145)
[2024-11-18 13:04] VITALS: BP 145/90; PULSE 60; RESP 16; TEMP 36.6; O2SAT 99
== END 2024-11-18 13:05 | disposition home or self-care (01) ==
PROVIDERS: Emergency Provider Emergency Medicine; PCP Nurse Practitioner Family; Visit Provider Emergency Medicine
DX: I10 Essential (primary) hypertension (principal); R42 Dizziness and giddiness
CPT/HCPCS: 80048; 85025; 96374; 96375; 99284; A4216; J2405

== ENCOUNTER → 2024-12-07 | Outpatient (CLI) | payer BC, SELFPAY ==
[2024-12-07 15:24] LABS: Bacteria 0 SEEN /hpf (None Seen); Mucous, Urine 0 SEEN /hpf (<or=2+); Squamous Epithelial Cells - UA 0 SEEN /hpf (0-5)
[2024-12-07 16:57] LABS: Color, Urine Yellow (Yellow); Glucose, Dipstick Normal (Normal); Ketone-Dipstick Negative (Negative); Leukocyte Esterase-Dipstick Negative /ul (Negative); Nitrite-Dipstick Negative (Negative); Occult Blood-Urine Negative /ul (Negative); Protein-Dipstick 30 mg/dl (Negative); Urine Bilirubin Dipstick Negative (Negative); Urine Clarity Clear (Clear); Urine Urobilinogen Normal (Normal)
[2024-12-07 17:53] LABS: Anion Gap 12 (5-15); BUN 16 mg/dL (4-19); BUN/Creat Ratio 16.5 RATIO (10-20); Calcium,Total 9.2 mg/dL (7.6-11.0); Carbon Dioxide 24.2 mmol/L (21.0-32.0); Chloride 103 mmol/L (98-108); Creatinine, Serum 0.97 mg/dL (0.70-1.20); EST Glomerular Filtration Rate 103 (>60); Glucose 92 mg/dL (70-99); Potassium 3.9 mmol/L (3.3-5.1); Sodium Level 140 mmol/L (133-145)
[2024-12-07 18:41] LABS: White Blood Cells 0-5 SEEN /hpf (0-5)
[2024-12-07 18:42] LABS: Red Blood Cells-Urine 0 SEEN /hpf (0-5)
[2024-12-07 19:02] LABS: Microalbumin,Random Urine < 12.0 mg/L (NO RANGE EST.)
== END | disposition home or self-care (01) ==
LOC: LAB.FUTURE 15:22 → VSLAB 12-08 14:10
PROVIDERS: PCP Nurse Practitioner Family; Visit Provider Nurse Practitioner Family
DX: R80.9 Proteinuria, unspecified (principal)
CPT/HCPCS: 36415; 80048; 81001; 82043